=== PATIENT | male | born 1990 | race Two or more races ===

== ENCOUNTER 2019-05-16 18:23 | Emergency (ER) | payer SELFPAY ==
[~2019-05-16] VITALS: Ht 172.7 cm; Wt 64.4 kg
[2019-05-16 18:32] VITALS: BP 127/80
--- NOTE | 2019-05-16 18:40 | NUR ---
ED Nurse Note: Patient walked into ED c/o burning sensation while urinating, for 2-3 days. patient is alert awake x4 ambulatory. breathing unlabored and even.
--- NOTE | 2019-05-16 18:45 | NUR ---
ED Nurse Note: UA SENT TO LAB
--- NOTE | 2019-05-16 19:16 | NUR ---
HAND-OFF: Report given to JAYDEN DUNBAR.
[2019-05-16 19:29] LABS: APPEARANCE,URINE CLEAR; BILIRUBIN, URINE NEGATIVE (NEGATIVE); COLOR,URINE YELLOW; GLUCOSE, URINE (UA) NEGATIVE (NEGATIVE); KETONES,URINE NEGATIVE (NEGATIVE); NITRITE,URINE NEGATIVE (NEGATIVE); PROTEIN,URINE NEGATIVE (NEGATIVE)
[2019-05-16 19:30] LABS: LEUKOCYTE ESTERASE ,URINE 1+ (NEGATIVE); UROBILINOGEN,URINE 1 MG/DL (0.0-1.0)
--- NOTE | 2019-05-16 19:35 | Emergency Room Report ---
History of Present Illness General Chief Complaint: Male Urogenital Problems Source: Patient Present Illness HPI 28-year-old male with no significant past medical history here complaining of few days of urinary frequency and pain. Patient denies being sexually active and reports that he masturbates on daily basis. Denies penile discharge. Patient later tells me that he was recently diagnosed with C. difficile and treated with metronidazole. Patient also had an urine infection of C. 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 Denies fever and chills, abdominal pain, shortness of breath, palpitation, anal pain, and all other associated symptoms. Denies hematuria Allergies: Coded Allergies: No Known Allergies (Unverified , 05/16/19) Patient History Limited by: language barrier Past Medical History: see triage record Past Surgical History: unable to obtain Pertinent Family History: none Immunizations: UTD Reviewed Nursing Documentation: PMH: Agreed; PSxH: Agreed Nursing Documentation-PMH Past Medical History: No Stated History Review of Systems All Other Systems: negative except mentioned in HPI Physical Exam Vital Signs Date Time Temp Pulse Resp B/P (MAP) Pulse Ox O2 Delivery O2 Flow Rate FiO2 05/16/19 18:32 98.1 78 18 127/80 (96) 97 Room Air Sp02 EP Interpretation: reviewed, normal General Appearance: normal inspection, well appearing, no apparent distress, alert Head: normocephalic, atraumatic Eyes: bilateral eye normal inspection, bilateral eye PERRL ENT: normal ENT inspection, hearing grossly normal Neck: normal inspection, full range of motion Respiratory: normal inspection, chest non-tender, no rhonchi, no wheezing Cardiovascular #1: normal inspection, normal peripheral pulses, regular rate, rhythm, no gallop, no murmur Gastrointestinal: normal inspection, non tender, soft Rectal: deferred Genitourinary: no CVA tenderness Musculoskeletal: normal inspection, back normal, digits/nails normal, gait/ station normal Neurologic: normal inspection, alert Psychiatric: normal inspection, judgement/insight normal Skin: no rash Lymphatic: normal inspection, no adenopathy Medical Decision Making PA Attestation All my diagnosis and treatment plans were reviewed ad discussed with my supervising physician Dr. Sharma Diagnostic Impression: Primary Impression: Prostatitis ER Course 28-year-old male with no significant past medical history here complaining of few days of urinary frequency and pain. Patient denies being sexually active and reports that he masturbates on daily basis. Denies penile discharge. Patient later tells me that he was recently diagnosed with C. difficile and treated with metronidazole. Patient also had an urine infection of C. 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 Denies fever and chills, abdominal pain, shortness of breath, palpitation, anal pain, and all other associated symptoms. Denies hematuria Ddx considered but are not limited to: UTI, pylonephritis, urinary incontinence , prolapsed bladder, prostatitis Vital signs: are WNL, pt. is afebrile H&PE are most consistent with: Prostatitis ORDERS: UA, urine cx, keflex ED INTERVENTIONS: None required at this time. DISCHARGE: At this time pt. is stable for d/c to home. Will provide printed patient care instructions, and any necessary prescriptions. Care plan and follow up instructions have been discussed with the patient prior to discharge. Patient wants to know exactly which bacteria might have caused this and I gave him an approximation that could be E. coli however we do not know the culture results yet patient is concerned that this is dangerous I explained to the patient that he needs to follow-up with his primary care provider patient and is a struggling due to language barrier and keeps wanting to go back in the room and explained things to him even though I had just woken up the room explaining everything with him a copy of all aftercare instructions. Last Vital Signs Date Time Temp Pulse Resp B/P (MAP) Pulse Ox O2 Delivery O2 Flow Rate FiO2 05/16/19 18:32 98.1 72 18 127/80 97 Room Air Disposition: HOME, SELF-CARE Condition: Stable Scripts Cephalexin* (KEFLEX*) 500 Mg Capsule 500 MG ORAL EVERY 6 HOURS for 7 Days, #28 CAP Prov: Obdulio López 05/16/19 Patient Instructions: Prostatitis, [id number] Additional Instructions: Take medication as directed follow-up with your primary care provider for referral to urologist if worsening symptoms return to the emergency room Obdulio López May 16, 2019 19:35
[2019-05-16] MEDS ORDERED: BACTRIM DS TAB1 EAC1 ORAL (19:36)
[2019-05-16] MEDS ORDERED: CEPHALEXIN500 MG ORAL (19:41)
[2019-05-16 19:45] VITALS: BP 122/75
--- NOTE | 2019-05-16 19:45 | NUR ---
ER DISCHARGE NOTE: Patient is cleared to be discharged per ERMD, pt is aox4, on room air, with stable vital signs. pt was given dc and prescription instructions, pt was able to verbalize understanding, pt id band removed without complications. pt is able to ambulate with steady gait. pt took all belongings.
== END 2019-05-16 19:45 | disposition home or self-care (01) ==
LOC: EMR 18:55
DX: N41.9 Inflammatory disease of prostate, unspecified (principal); R82.71 Bacteriuria
CPT/HCPCS: 81001; 87086; 99283